=== PATIENT | male | born 1975 | race Caucasian/White ===

== ENCOUNTER 2025-01-07 12:52 | Emergency (ER) | payer SELFPAY ==
[2025-01-07 13:01] VITALS: BP 157/84; PULSE 77; RESP 18; TEMP 36.2; O2SAT 98
--- NOTE | 2025-01-07 13:39 | W.ED.GENAD ---
Discharge Plan Disposition Patient Disposition: Home Condition: Stable Discharge Details Clinical Impression: Pain, dental Primary Care Provider: Mariaelena,Local ED Provider: Ministerio Sandoval Home Meds and New Rx's Prescriptions: New amoxicillin 875 mg tablet 875 mg PO BID 10 Days Qty: 20 0RF tramadol 50 mg tablet 50 mg PO TID PRNQty: 14 0RF Discharge Instructions Instructions: Dental Pain Additional Instructions: Amoxicillin and tramadol as directed, tramadol may cause drowsiness. Cool and/or warm compresses as tolerated for discomfort. [id number] Tylenol and/or Motrin as directed for discomfort. Salt water swish and spit as tolerated. Please follow-up with your dentist as already scheduled on . Watch for new or worsening symptoms and return to the ER for any concerns. Discharge Data Discharge Date/Time-TO BE ENTERED AT DEPARTURE: 01/07/25 14:58 HPI General Mode of arrival: ambulatory. Date/Time Provider Initiated Documentation: 01/07/25 13:05. Limitations to Documentation: no limitations. Information obtained by: patient. History of Present Illness 49 year old M presents to the emergency department with the chief complaint of Dental pain, described as severe, with intensity rated at 7. Quality is described as aching, and is localized to the mouth. Patient reports no radiation. Patient started experiencing this week(s) (1) and it has been other (Progressive). No relieving factors improve symptom(s), No exacerbating factors reported . Patient notes no other symptoms.. Patient did receive the following treatments prior to arrival, NSAID and other (Tylenol) Related Data Home Medications Medication Instructions Recorded Confirmed amoxicillin 875 mg tablet 875 mg PO BID 10 days #20 tabs 01/07/25 tramadol 50 mg tablet 50 mg PO TID PRN #14 tabs 01/07/25 Previous Rx's Medication Instructions Recorded amoxicillin 875 mg tablet 875 mg PO BID 10 days #20 tabs 01/07/25 tramadol 50 mg tablet 50 mg PO TID PRN #14 tabs 01/07/25 Allergies Allergy/AdvReac Type Severity Reaction Status Date / Time No Known Allergies Allergy Unverified 01/07/25 13:07 General Stated Complaint: DentalOral NAVJOT: 4 Review of Systems Constitutional Constitutional: Denies fever(s) and Denies headache(s) ENT Ears, Nose, Mouth, and Throat: Denies headache(s) and Denies sore throat Gastrointestinal Gastrointestinal: Denies nausea and Denies vomiting Integumentary/Breasts Skin/Breast: Denies rash Neurologic Neurologic: Denies headache(s) Exam Const General: cooperative, healthy appearing, comfortable and no acute distress Orientation: alert, awake and oriented x3 HENMT Head: normal to inspection, normocephalic and atraumatic Ears: external ears normal General nose exam: external nose normal Face and sinus: normal facial exam Mouth: oral mucosae normal, lip normal, tongue normal and moist mucous membranes Teeth image:  1. Tenderness to palpation. Dental carry with filling noted. No localized erythema, swelling, signs of abscess. Airway patent. No trismus. Throat: posterior oropharynx normal Eyes General: appearance normal, both eyes and all related structures Conjunctivae: conjunctivae normal Neck Neck: normal visual inspection, full ROM, no lymphadenopathy, no meningeal signs, trachea midline and supple Resp Effort & Inspection: normal respiratory effort and able to speak in complete sentences Cardio Rate: regular rate Rhythm: regular rhythm Skin General skin exam: no rashes or lesions noted Neuro General: patient alert, patient awake, moves all extremities and no focal motor deficits Sensory Exam: no sensory deficits noted Psych Appearance: grossly normal Mental Status: mental status grossly normal Course Vital Signs Vital signs: Vital Signs Temperature 36.2 C L 01/07/25 13:01 Pulse 77 01/07/25 13:01 Respiratory Rate 18 01/07/25 13:01 Blood Pressure 157/84 H 01/07/25 13:01 Pulse Oximetry 98 01/07/25 13:01 Temperature 36.2 C L 01/07/25 13:01 Pulse 77 01/07/25 13:01 Respiratory Rate 18 01/07/25 13:01 Blood Pressure 157/84 H 01/07/25 13:01 Pulse Oximetry 98 01/07/25 13:01 Oxygen Delivery Method Room Air 01/07/25 13:01 Oxygen Flow Rate 0 01/07/25 13:01 Pain Level 5 01/07/25 13:01 Medical Decision Making This is an otherwise healthy male, non-smoker, who presents for left lower dental pain has been ongoing but progressively worse over the past week, unable to sleep last night. He has good dental care and already has a root canal scheduled for this upcoming Thursday. No fever, difficulty speaking or swallowing, or trismus. No overt signs of abscess. He is hopeful for better pain control especially overnight. Clinically he appears well, nontoxic, afebrile. Speaks in full sentences without difficulty. No trismus. No evidence of dental abscess or peritonsillar abscess. Given his increased of discomfort over the past month, certainly cannot rule out early infection. Given this we will treat with amoxicillin. His dental team may discontinue when they see him later this week at their discretion. Will provide a short-term prescription of tramadol to help with sleeping overnight. He will continue to optimize Tylenol and Motrin. We discussed cool and/or warm compresses as well as salt water gargle swish and spit. Standard discharge and return precautions were provided. Patient understands, is agreeable to this plan, and has no additional questions or concerns upon discharge. This documentation was generated using [employer] dictation system, please disregard any oddities of phrase or misspellings. Medical Records Medical records reviewed: Yes I reviewed the patient's medical records. PFSH All Active Problems Pain, dental (Acute) Social History Smoking/Tobacco Use Status: Never Smoking risk assessment performed?: Yes Alcohol Intake: current Alcohol Intake frequency: 0-2 drinks per day Drug use: Daily Substance use type: marijuana Housing: house Do you feel safe at home: Yes Do you feel safe in your relationship?: Yes
[2025-01-07 14:09] VITALS: BP 157/84; PULSE 77; RESP 18; TEMP 36.2; O2SAT 98
== END 2025-01-07 14:58 | disposition home or self-care (01) ==
LOC: ER 15:41
PROVIDERS: Emergency Provider Physician Assistant
DX: R68.84 Jaw pain (principal); K08.89 Other specified disorders of teeth and supporting structures
CPT/HCPCS: 99283 ×2